=== PATIENT | male | born 1955 | race Caucasian/White ===

== ENCOUNTER 2020-09-21 15:47 | Emergency (ER) | payer OTHER ==
[~2020-09-21] VITALS: Ht 167.6 cm; Wt 65.8 kg
--- NOTE | 2020-09-21 16:36 | EKG ---
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 09/21/20 1636 1634 1634 Jaswant Mojica MD, FACC /EPI
[2020-09-21 16:59] LABS: ABSOLUTE NEUTROPHILS 2.6 thou/uL (1.4-8.2); EOSINOPHILS 14.3 % (0.0-3.0); HEMATOCRIT 45.1 % (42.0-52.0); HEMOGLOBIN 15.4 gm/dL (14.0-18.0); LYMPHOCYTES 34.9 % (24.0-44.0); MCH 32.3 pg (26.0-34.0); MCHC 34.1 g/dL (28.0-37.0); MCV 94.8 fL (80.0-100.0); MONOCYTES 10.6 % (1.0-8.0); PLATELET COUNT 213 thou/uL (150-400); POLYS 39.2 % (36.0-66.0); RBC 4.76 mil/uL (4.50-6.00); RDW 13.2 % (10.5-14.5); WBC 6.6 thou/uL (4.0-11.0)
[2020-09-21 17:08] LABS: ANION GAP 8 mmol/L (7-16); BUN 19 mg/dL (7-18); CALCIUM 9.5 mg/dL (8.5-10.1); CHLORIDE 105 mmol/L (98-107); CO2 29 mmol/L (21-32); CREATININE 1.1 mg/dL (0.7-1.3); GLUCOSE 100 mg/dL (74-106); POTASSIUM 3.8 mmol/L (3.5-5.1); SODIUM 142 mmol/L (136-145)
[2020-09-21 17:15] LABS: LIPASE 122 U/L (73-393); SGOT 18 U/L (15-37); SGPT 27 U/L (16-63); TOTAL BILIRUBIN 0.5 mg/dL (0.2-1.0); TOTAL PROTEIN 7.5 g/dL (6.4-8.2); TROPONIN-I <0.06 ng/mL (<0.06)
[2020-09-21 18:08] LABS: URINE BILIRUBIN NEGATIVE (Negative); URINE BLOOD NEGATIVE (Negative); URINE CLARITY CLEAR; URINE COLOR YELLOW; URINE GLUCOSE-RANDOM* NEGATIVE (Negative); URINE KETONES NEGATIVE (Negative); URINE LEUKOCYTES-REFLEX NEGATIVE (Negative); URINE NITRITE-REFLEX NEGATIVE (Negative); URINE PROTEIN (DIPSTICK) NEGATIVE (Negative); URINE SPECIFIC GRAVITY 1.025 (1.005-1.035)
[2020-09-21] MEDS ORDERED: ZPAK PO (18:17)
[2020-09-21] MEDS ORDERED: FLEXERIL PO (18:18)
[2020-09-21 18:49] VITALS: BP 138/73
== END 2020-09-21 18:50 | disposition home or self-care (01) ==
LOC: ER 15:47
PROVIDERS: Emergency Medicine
DX: J06.9 Acute upper respiratory infection, unspecified (principal); B97.89 Other viral agents as the cause of diseases classified elsewhere; R07.81 Pleurodynia; F17.210 Nicotine dependence, cigarettes, uncomplicated; Z91.09 Other allergy status, other than to drugs and biological substances; Z20.822 Contact with and (suspected) exposure to COVID-19